=== PATIENT | male | born 1975 | race Caucasian/White ===

== ENCOUNTER → 2016-09-25 | Outpatient (REF) | payer OTHER, BC | LOC: M LAB REF 17:05 | PROVIDERS: ATTEND Nurse Practitioner Adult Health | DX: E78.2 Mixed hyperlipidemia (principal) ==

== ENCOUNTER → 2017-01-28 | Outpatient (REF) | payer OTHER | LOC: M LAB REF 17:21 | PROVIDERS: ATTEND Nurse Practitioner Adult Health | DX: E78.2 Mixed hyperlipidemia (principal) ==

== ENCOUNTER → 2017-02-27 | Outpatient (REF) | payer OTHER | LOC: M LAB REF 16:27 | PROVIDERS: ATTEND Nurse Practitioner Adult Health | DX: E78.2 Mixed hyperlipidemia (principal) ==

== ENCOUNTER → 2018-06-12 | Outpatient (REF) | payer OTHER ==
[2018-06-14 13:50] LABS: LDL DIRECT 109 mg/dL (0-99)
== END ==
LOC: M LAB REF 16:35
PROVIDERS: ATTEND Nurse Practitioner Adult Health
DX: E78.2 Mixed hyperlipidemia (principal)

== ENCOUNTER → 2019-10-26 | Outpatient (REF) | payer OTHER ==
[2019-12-07 08:25] LABS: LDL DIRECT SEE SEPARATE REPORT mg/dl
== END ==
LOC: M LAB REF 09:59
PROVIDERS: ATTEND Registered Nurse
DX: E78.2 Mixed hyperlipidemia (principal)

== ENCOUNTER → 2020-11-01 | Outpatient (REF) | payer OTHER ==
[2020-11-03 08:09] LABS: LDL DIRECT 88 mg/dL (0-99)
== END ==
LOC: M LAB REF 16:21
PROVIDERS: ATTEND Nurse Practitioner Adult Health
DX: E78.2 Mixed hyperlipidemia (principal)

== ENCOUNTER → 2022-05-21 | Outpatient (CLI) | payer BC, OTHER | LOC: M WUC 08:22 | PROVIDERS: ATTEND Physician Assistant | DX: S63.8X1A Sprain of other part of right wrist and hand, initial encounter (principal) ==

== ENCOUNTER → 2022-06-11 | Outpatient (REF) | payer BC, OTHER ==
[2022-06-11 18:12] LABS: C REACTIVE PROTEIN QUANTITATIV 1.8 MG/DL (<1.0)
[2022-06-11 18:19] LABS: URIC ACID 9.3 MG/DL (3.7-9.2)
[2022-06-12 18:04] LABS: RHEUMATOID FACTOR QUANT 4.7 IU/ML (<14)
== END ==
LOC: M LAB REF 17:20
PROVIDERS: ATTEND Internal Medicine
DX: M25.531 Pain in right wrist (principal)

== ENCOUNTER → 2022-09-11 | Outpatient (REF) | payer OTHER, BC ==
[2022-09-13 08:12] LABS: LDL DIRECT 103 mg/dL (0-99)
== END ==
LOC: M LAB REF 12:31
PROVIDERS: ATTEND Nurse Practitioner Family
DX: K76.0 Fatty (change of) liver, not elsewhere classified (principal); E78.2 Mixed hyperlipidemia

== ENCOUNTER → 2023-03-19 | Outpatient (CLI) | payer OTHER | LOC: M PLARAD 07:26 | PROVIDERS: ATTEND Physician Assistant | DX: M25.461 Effusion, right knee (principal); R93.6 Abnormal findings on diagnostic imaging of limbs ==

== ENCOUNTER → 2023-04-01 | Outpatient (CLI) | payer OTHER ==
[2023-04-01 12:34] LABS: BASO % 0.4 % (0.0-1.0); EOS # 0.1 10^3/uL (0.0-0.5); EOS % 1.4 % (0.0-3.0); HEMATOCRIT 44.4 % (42.0-52.0); HEMOGLOBIN 14.8 g/dl (13.5-17.5); LYMPH # 1.4 10^3/uL (1.5-5.0); MEAN CORPUSCULAR HEMOGLOBIN 29.5 pg (27.0-33.0); MEAN CORPUSCULAR HGB CONC 33.3 g/dl (32.0-36.5); MEAN CORPUSCULAR VOLUME 88.6 fl (80.0-96.0); MONO # 0.8 10^3/uL (0.0-0.8); NEUTROPHILS # 4.7 10^3/uL (1.5-8.5); NEUTROPHILS % 66.6 % (36.0-66.0); PLATELET COUNT, AUTOMATED 254 10^3/uL (150-450); RED BLOOD COUNT 5.01 10^6/uL (4.30-6.10); RHEUMATOID FACTOR QUANT < 3.5 IU/ML (<14); WHITE BLOOD COUNT 7.1 10^3/uL (4.0-10.0)
[2023-04-01 12:35] LABS: URIC ACID 7.1 MG/DL (3.7-9.2)
[2023-04-01 13:04] LABS: SOURCE, BODY FLUID GLUCOSE LFT KNEE
[2023-04-01 13:10] LABS: CRYSTALS, BODY FLUID NONE SEEN (NONE SEEN); SOURCE, BODY FLUID CRYSTALS LFT KNEE
[2023-04-01 13:20] LABS: ERYTHROCYTE SEDIMENTATION RATE 35 mm/hr (0-15)
[2023-04-01 13:38] LABS: SOURCE, BODY FLUID LFT KNEE
[2023-04-01 13:39] LABS: SYNOVIAL FLUID COLOR YELLOW (COLORLESS)
[2023-04-02 13:13] LABS: ANTINUCLEAR ANTIBODIES DIRECT Negative (Negative)
== END ==
LOC: M PLALAB 10:25
PROVIDERS: ATTEND Orthopaedic Surgery
DX: S83.281D Other tear of lateral meniscus, current injury, right knee, subsequent encounter (principal); M25.462 Effusion, left knee

== ENCOUNTER → 2023-04-30 | Outpatient (REF) | payer OTHER ==
[2023-05-01 07:07] LABS: LDL DIRECT 91 mg/dL (0-99)
== END ==
LOC: M LAB REF 13:14
PROVIDERS: ATTEND Nurse Practitioner Family
DX: R53.83 Other fatigue (principal); E78.2 Mixed hyperlipidemia

== ENCOUNTER → 2023-11-19 | Outpatient (REF) | payer OTHER ==
[2023-11-21 13:37] LABS: LDL DIRECT 75 mg/dL (<100)
== END ==
LOC: M LAB REF 16:59
PROVIDERS: ATTEND Internal Medicine
DX: E78.2 Mixed hyperlipidemia (principal)

== ENCOUNTER → 2024-05-13 | Outpatient (CLI) | payer BC | LOC: M SLEEP HO 10:41 | PROVIDERS: ATTEND Nurse Practitioner Adult Health | DX: G47.33 Obstructive sleep apnea (adult) (pediatric) (principal) ==